=== PATIENT | female | born 1970 | race Caucasian/White ===

== ENCOUNTER 2021-07-08 14:24 | Outpatient (CLI) | payer OTHER | END 2021-07-08 14:25 | disposition home or self-care (01) | LOC: CSHMAMMO 14:24 | PROVIDERS: ATTEND Obstetrics & Gynecology | DX: Z12.31 Encounter for screening mammogram for malignant neoplasm of breast (principal) | CPT/HCPCS: 77063; 77067 ==

== ENCOUNTER 2021-07-12 08:59 | Day surgery (SDC) | payer OTHER | END 2021-07-12 10:25 | disposition home or self-care (01) | LOC: CSHSDC/OP 08:59 | PROVIDERS: ATTEND Family Medicine | DX: Z23 Encounter for immunization (principal); U07.1 COVID-19 | CPT/HCPCS: 96365 ==

== ENCOUNTER 2022-10-25 08:28 | Outpatient (CLI) | payer OTHER | END 2022-10-25 08:29 | disposition home or self-care (01) | LOC: CSHMAMMO 08:28 | PROVIDERS: ATTEND Family Medicine | DX: Z12.31 Encounter for screening mammogram for malignant neoplasm of breast (principal) | CPT/HCPCS: 77063; 77067 ==